=== PATIENT | female | born 1955 | race Caucasian/White ===

== ENCOUNTER 2022-01-11 18:05 | Emergency (ER) | payer MEDICARE ==
[2022-01-11 18:59] LABS: BASO # 0.1 10*3/uL (0.0-0.1); BASO % 0.7 % (0.0-1.0); EOS # 0.3 10*3/uL (0.0-0.4); EOS % 3.7 % (1.0-4.0); HEMATOCRIT 40.1 % (37.0-47.0); LYMPH # 1.4 10*3/uL (1.3-4.4); LYMPH % 20.1 % (27.0-41.0); MEAN CELL VOLUME 100.3 fl (81.0-99.0); MEAN CORPUSCULAR HGB 32.3 pg (27.0-31.0); MEAN CORPUSCULAR HGB CONC 32.2 g/dl (33.0-37.0); MEAN PLATELET VOLUME 10.8 fl (9.6-12.3); MONO # 0.9 10*3/uL (0.1-1.0); MONO % 12.7 % (3.0-9.0); NEUT # 4.2 10*3/uL (2.3-7.9); NEUT % 62.5 % (47.0-73.0); PLATELET COUNT AUTOMATED 232 10*3/uL (130-400); RED CELL DISTRI WIDTH 12.1 % (0-14.5); WHITE BLOOD COUNT 6.8 10*3/uL (4.8-10.8)
[2022-01-11 19:32] LABS: ALKALINE PHOSPHATASE 102 U/L (46-116); BUN 25 mg/dl (9-23); CHLORIDE 104 mmol/L (98-107); CREATININE 0.76 mg/dL (0.55-1.02); SGPT/ALT 20 U/L (10-49); SODIUM 141 mmol/L (136-145); TOTAL PROTEIN 7.3 gm/dL (6.0-8.0)
[2022-01-11 19:33] LABS: THYROID STIM HORMONE (HS) 9.056 uIU/ml (0.550-4.780)
[2022-01-11 20:02] LABS: BILIRUBIN Negative (Negative); BLOOD 2+ (Negative); CLARITY Turbid (Clear); COLOR Yellow (Yellow); GLUCOSE Negative (Negative); KETONE Trace (Negative); LEUKO ESTERASE 3+ (Negative); NITRITE Negative (Negative); PH 7.5 (4.5-8.0); SPECIFIC GRAVITY 1.025 (1.001-1.030)
[2022-01-11 20:19] LABS: POTASSIUM 3.8 mmol/L (3.4-5.1)
[2022-01-11 20:20] LABS: ETHYL ALCOHOL < 3.0 mg/dl (<3)
[2022-01-11 20:39] LABS: BACTERIA 3+; URINE AMPHETAMINES Negative (1000ng/ml); URINE BARBITURATES Negative (200ng/ml); URINE BENZODIAZEPINES Negative (200ng/ml); URINE CANNABINOIDS (THC) Negative (50ng/ml); URINE COCAINE Negative (300ng/ml); URINE METHADONE Negative (300ng/ml); URINE OPIATES Negative (300ng/ml); URINE PHENCYCLIDINE Negative (25ng/ml)
[2022-01-11] MEDS ORDERED: MILK OF MA400 MG/51 PO (21:14)
[2022-01-11] MEDS ORDERED: VISTARIL50 MG PO (21:15)
[2022-01-11] MEDS ORDERED: DEPAKOTE SPRIN125 MG PO (21:16)
[2022-01-11] MEDS ORDERED: APAP325 MG PO (21:18)
[2022-01-11] MEDS ORDERED: DULCOLAX10 M1 R (21:20)
[2022-01-11] MEDS ORDERED: FLEET MINERAL133 ML PO (21:48)
[2022-01-11] MEDS ORDERED: ASPIRIN CHEWABL81 MG PO (21:49)
[2022-01-11] MEDS ORDERED: TENORMIN25 M1 PO (21:50)
[2022-01-11] MEDS ORDERED: EXELON1 EACH TD (21:51)
[2022-01-11] MEDS ORDERED: LEVOTHYROXINE50 MCG PO (21:52)
[2022-01-11] MEDS ORDERED: RISPERDAL1 M1 PO (22:01)
[2022-01-11] MEDS ORDERED: ROSUVASTATIN CA10 MG PO (22:01)
[2022-01-15] MEDS ORDERED: AMOXICILLIN500 M2 PO (22:13)
== END 2022-01-11 22:00 ==
LOC: ED 18:05 → EDBD 18:23 → ED 22:00
PROVIDERS: Physician Assistant
DX: R45.1 Restlessness and agitation (principal); Z20.822 Contact with and (suspected) exposure to COVID-19; Z88.0 Allergy status to penicillin; Z79.899 Other long term (current) drug therapy; Z79.82 Long term (current) use of aspirin